=== PATIENT | male | born 1965 | race Caucasian/White ===

== ENCOUNTER 2016-12-07 09:38 | Emergency (ER) | payer SELFPAY ==
[2016-12-07] MEDS ORDERED: PREDNISONE 20 MG TABLET PO ONE (10:25)
--- NOTE | 2016-12-07 10:47 | ER Document Report ---
ED General - General Chief Complaint: Arm Pain Stated Complaint: ARM PAIN Mode of Arrival: Ambulatory Information source: Patient Notes: 50-year-old male chronic left elbow pain presents with complaints of continued pain. Patient notes she had a primary care physician boluses insurance. Patient used to receive cortisone injection into the elbow but has not had one since August. Denies any fevers or chills nausea vomiting or diarrhea. Patient admits that the pain radiates to his shoulder into his neck but starts at his elbow She denies any recent trauma TRAVEL OUTSIDE OF THE [place] IN LAST 30 DAYS: No - HPI Onset: Other Onset/Duration: Persistent Quality of pain: Achy Severity: Mild Pain Level: 3 Associated symptoms: Other Exacerbated by: Movement Relieved by: Denies Similar symptoms previously: Yes Recently seen / treated by doctor: No - Related Data Allergies/Adverse Reactions: acetaminophen [From Percocet] Allergy (Verified 12/07/16 09:45) oxycodone [From Percocet] Allergy (Verified 12/07/16 09:45) Penicillins Allergy (Verified 12/07/16 09:45) Past Medical History - Social History Smoking Status: Never Smoker Cigarette use (# per day): No Chew tobacco use (# tins/day): No Smoking Education Provided: No Frequency of alcohol use: None Drug Abuse: None Family History: Reviewed & Not Pertinent Patient has suicidal ideation: No Patient has homicidal ideation: No Pulmonary Medical History: Reports: Hx Asthma, Hx Bronchitis - chronic, Hx COPD Renal/ Medical History: Denies: Hx Peritoneal Dialysis Past Surgical History: Reports: Hx Appendectomy, Hx Herniorrhaphy, Hx Vascular Surgery - Bilateral lower extremity vein stripping.. Denies: Hx Thyroid Surgery - Immunizations Hx Diphtheria, Pertussis, Tetanus Vaccination: Yes Review of Systems - Review of Systems Notes: REVIEW OF SYSTEMS: CONSTITUTIONAL : Denies fever, chills, or sweats. Denies recent illness. EENT: Denies eye, ear, throat, or mouth pain or symptoms. Denies nasal or sinus congestion or discharge. Denies throat, tongue, or mouth swelling or difficulty swallowing. CARDIOVASCULAR: Denies chest pain. Denies palpitations or racing or irregular heart beat. Denies ankle edema. RESPIRATORY: Denies cough, cold, or chest congestion. Denies shortness of breath, difficulty breathing, or wheezing. GASTROINTESTINAL: Denies abdominal pain or distention. Denies nausea, vomiting , or diarrhea. Denies blood in vomitus, stools, or per rectum. Denies black, tarry stools. Denies constipation. GENITOURINARY: Denies difficulty urinating, painful urination, burning, frequency, blood in urine, or discharge. MUSCULOSKELETAL: Admits to left elbow pain rating to the neck SKIN: Denies rash, lesions or sores. HEMATOLOGIC : Denies easy bruising or bleeding. LYMPHATIC: Denies swollen, enlarged glands. NEUROLOGICAL: Denies confusion or altered mental status. Denies passing out or loss of consciousness. Denies dizziness or lightheadedness. Denies headache. Denies weakness or paralysis or loss of use of either side. Denies problems with gait or speech. Denies sensory loss, numbness, or tingling. Denies seizures. PSYCHIATRIC: Denies anxiety or stress. Denies depression, suicidal ideation, or homicidal ideation. ALL OTHER SYSTEMS REVIEWED AND NEGATIVE. Dictation was performed using [employer] voice recognition software PHYSICAL EXAMINATION: GENERAL: Well-appearing, well-nourished and in no acute distress. HEAD: Atraumatic, normocephalic. EYES: Pupils equal round and reactive to light, extraocular movements intact, sclera anicteric, conjunctiva are normal. ENT: Nares patent, oropharynx clear without exudates. Moist mucous membranes. NECK: Normal range of motion, supple without lymphadenopathy LUNGS: Breath sounds clear to auscultation bilaterally and equal. No wheezes rales or rhonchi. HEART: Regular rate and rhythm without murmurs ABDOMEN: Soft, nontender, nondistended abdomen. No guarding, no rebound. No masses appreciated. Musculoskeletal: Limited range of motion of the left elbow secondary to pain, mild effusion noted without any erythema, there is no streaking noted, nursing note notes redness which is not apparent on examination, olecranon is similar to the right elbow NEUROLOGICAL: Cranial nerves grossly intact. Normal speech, normal gait. Normal sensory, motor exams PSYCH: Normal mood, normal affect. SKIN: Warm, Dry, normal turgor, no rashes or lesions noted. Physical Exam - Vital signs Vitals: Temp Pulse Resp BP Pulse Ox 97.8 F 82 16 103/78 95 12/07/16 09:42 12/07/16 09:42 12/07/16 09:42 12/07/16 09:42 12/07/16 09:42 Course - Re-evaluation Re-evalutation: 12/07/16 10:47 Patient probably has continued pain chronic which is worsening since he has not received any steroids. I will start him on oral steroids and will follow. Patient requests an x-ray which I will provide him 12/07/16 11:10 X-ray notes only degenerative changes which would be consistent with a presentation. Patient's otherwise stable for discharge, I will discharge home with steroids and continued pain control and follow-up with orthopedics After performing a Medical Screening Examination, I estimate there is LOW risk for INTRACRANIAL HEMORRHAGE, UNSTABLE SPINE FRACTURE, CENTRAL CORD SYNDROME, CAUDA EQUINA, THORACIC AORTIC DISSECTION, PNEUMOTHORAX, PERFORATED BOWEL, RUPTURED ABDOMINAL AORTIC ANEURYSM, ACUTE TENDON RUPTURE, COMPARTMENT SYNDROME, or OPEN FRACTURE, thus I consider the discharge disposition reasonable. Also, there is no evidence or peritonitis, sepsis, or toxicity. The patient and I have discussed the diagnosis and risks, and we agree with discharging home to follow-up with their primary doctor with the understanding that symptoms and presentations can change. We also discussed returning to the Emergency Department immediately if new or worsening symptoms occur. We have discussed the symptoms which are most concerning (e.g., bloody stool, fever, changing or worsening pain, vomiting) that necessitate immediate return. - Vital Signs Vital signs: Temp Pulse Resp BP Pulse Ox 97.8 F 82 16 103/78 95 12/07/16 09:42 12/07/16 09:42 12/07/16 09:42 12/07/16 09:42 12/07/16 09:42 - Diagnostic Test Radiology reviewed: Image reviewed, Reports reviewed Discharge - Discharge Clinical Impression: Elbow pain, left, Muscle strain Condition: Stable Disposition: HOME, SELF-CARE Instructions: Joint Steroid Injection ([facility]) Prescriptions: Prednisone [Deltasone 20 mg Tablet] 3 tab PO DAILY 5 Days Referrals: KEILA ARENAS MD [Primary Care Provider] - Follow up as needed KATJA VILLANUEVA DO [ACTIVE STAFF] - Follow up in 3-5 days
[2016-12-07 11:45] VITALS: BP 116/74
== END 2016-12-07 11:42 | disposition home or self-care (01) ==
LOC: ER 09:38
DX: S53.402A Unspecified sprain of left elbow, initial encounter (principal); M79.602 Pain in left arm; M25.522 Pain in left elbow; X58.XXXA Exposure to other specified factors, initial encounter
CPT/HCPCS: 99283; 73070; J7512

== ENCOUNTER 2018-03-28 03:46 | Emergency (ER) | payer MEDICARE ==
[2018-03-28 04:36] LABS: APPEARANCE,URINE CLEAR; BILIRUBIN,URINE NEGATIVE (NEGATIVE); COLOR,URINE YELLOW; GLUCOSE, URINE NEGATIVE (NEGATIVE); KETONES,URINE NEGATIVE (NEGATIVE); LEUKOCYTE ESTERASE,URINE NEGATIVE (NEGATIVE); NITRITE,URINE NEGATIVE (NEGATIVE); PROTEIN,URINE NEGATIVE (NEGATIVE); URINE SPECIFIC GRAVITY 1.006; UROBILINOGEN,URINE NEGATIVE mg/dL (<2.0)
[2018-03-28] MEDS ORDERED: LIDOCAINE 2% URO-JET 5 ML KIT MM ONE (05:04)
--- NOTE | 2018-03-28 05:12 | ER Document Report ---
ED General - General Chief Complaint: Urinary Retention Stated Complaint: URINARY RETENTION Time Seen by Provider: 03/28/18 03:59 Notes: Patient is a pleasant 52-year-old male presents with complaint of urinary retention. He said this is a third time this happened. The last time this happened was approximately 2 months ago. At that time he went to an ER and had a Solis catheter placed and followed up with his primary care doctor week later and had it removed. He has never seen urology about this. He denies urinary frequency. He denies any retention or symptoms or retention between the actual episodes where he requires a Solis catheter. Patient has no other complaints at this time. TRAVEL OUTSIDE OF THE [place] IN LAST 30 DAYS: No - Related Data Allergies/Adverse Reactions: acetaminophen [From Percocet] Allergy (Verified 12/07/16 09:45) oxycodone [From Percocet] Allergy (Verified 12/07/16 09:45) Penicillins Allergy (Verified 12/07/16 09:45) Past Medical History - Social History Smoking Status: Former Smoker Chew tobacco use (# tins/day): No Frequency of alcohol use: None Drug Abuse: None Family History: Reviewed & Not Pertinent Patient has suicidal ideation: No Patient has homicidal ideation: No Pulmonary Medical History: Reports: Hx Asthma, Hx Bronchitis - chronic, Hx COPD Renal/ Medical History: Denies: Hx Peritoneal Dialysis Past Surgical History: Reports: Hx Appendectomy, Hx Herniorrhaphy, Hx Vascular Surgery - Bilateral lower extremity vein stripping.. Denies: Hx Thyroid Surgery - Immunizations Hx Diphtheria, Pertussis, Tetanus Vaccination: Yes Review of Systems - Review of Systems Notes: My Normal Review Basic REVIEW OF SYSTEMS: CONSTITUTIONAL : Denies fever, chills, or sweats. Denies recent illness. GASTROINTESTINAL: Severe suprapubic abdominal pain GENITOURINARY: Urinary retention. MUSCULOSKELETAL: Denies neck or back pain or joint pain or swelling. SKIN: Denies rash or skin lesions. NEUROLOGICAL: Denies altered mental status or loss of consciousness. Denies headache. Denies weakness or paralysis or loss of use of either side. Denies problems with gait or speech. Denies sensory or motor loss. ALL OTHER SYSTEMS REVIEWED AND NEGATIVE. Physical Exam - Vital signs Vitals: Temp Pulse Resp BP Pulse Ox 97.9 F 118 H 24 H 134/82 H 98 03/28/18 03:51 03/28/18 03:51 03/28/18 03:51 03/28/18 03:51 03/28/18 03:51 - Notes Notes: General Appearance: Well nourished, alert, cooperative, no acute distress, severe obvious discomfort. Vitals: reviewed, See vital signs table. Abdomen: Normal BS, soft, No rigidity, moderate suprapubic abdominal tenderness to palpation, No guarding, no rebound, no abdominal masses, no organomegaly Genital: Normal uncircumcised external genitalia. No redness or swelling. No gross blood in urine when patient is catheterized. Extremities: strength 5/5 in all extremities, good pulses in all extremities, no swelling or tenderness in the extremities, no edema. Skin: warm, dry, appropriate color, no rash Neuro: speech clear, oriented x 3, normal affect, responds appropriately to questions. Course - Re-evaluation Re-evalutation: 03/28/18 05:45 After straight cath and drainage of the patient's bladder his symptoms completely resolved and he felt much better. Urinalysis shows no evidence of infection. Will place a Solis catheter and the patient given a leg bag and him follow-up closely with urology. Will place him on Flomax. I encourage him return to ER immediately if he has worsening increasing pain, blood in his urine , fevers, or feels unwell. Patient agrees with plan will be discharged home. Dictation of this chart was performed using voice recognition software; therefore, there may be some unintended grammatical errors. - Vital Signs Vital signs: Temp Pulse Resp BP Pulse Ox 97.9 F 118 H 24 H 134/82 H 98 03/28/18 03:51 03/28/18 03:51 03/28/18 03:51 03/28/18 03:51 03/28/18 03:51 - Laboratory Laboratory results interpreted by me: 03/28/18 04:00 Urine Blood MODERATE H Discharge - Discharge Clinical Impression: Urinary retention Condition: Good Disposition: HOME, SELF-CARE Additional Instructions: Please follow up with the urologist. I have included the number to 3 different urology clinics. Please call to see who can see you first. Please take the Flomax as prescribed. please return to the ER if you have fevers, blood in your urine, or worsening pain. Prescriptions: Tamsulosin HCl [Flomax 0.4 mg Cap.sr] 0.4 mg PO DAILY #14 cap.sr.24h Referrals: LAURA ABDI PA [Primary Care Provider] - Follow up in 3-5 days SKIP CHENG MD [NO LOCAL MD] - 03/30/18 CONI GRANT MD [[facility]] - 03/30/18
[2018-03-28 06:16] VITALS: BP 132/78
== END 2018-03-28 06:16 | disposition home or self-care (01) ==
LOC: ER 03:46
DX: R33.9 Retention of urine, unspecified (principal); J44.9 Chronic obstructive pulmonary disease, unspecified; Z87.891 Personal history of nicotine dependence; Z88.5 Allergy status to narcotic agent; Z88.0 Allergy status to penicillin; Z88.6 Allergy status to analgesic agent; R10.30 Lower abdominal pain, unspecified
CPT/HCPCS: 99284; 51701; 51702; 81001; A9270; J3490